=== PATIENT | male | born 1955 | race Two or more races ===

== ENCOUNTER 2016-06-17 17:03 | Inpatient (IN) | payer OTHER ==
[~2016-06-17] VITALS: Ht 170.2 cm; Wt 61.0 kg
[~2016-06-17 17:03] MED LIST: BENZ100C70 PO
[2016-06-17] MEDS ORDERED: ASPIRIN 81 MG TAB PO STA (17:20)
[2016-06-17] MEDS ORDERED: NITROGLYCERIN (SL) 0.4 MG TAB SL PRN ×2 (17:30→18:30)
[2016-06-17 17:35] LABS: BASOPHILS % 0.4 % (0.0-2.0); EOSINOPHILS # 0.2 10^3/ul (0.0-0.5); EOSINOPHILS % 2.8 % (0.0-7.0); HEMATOCRIT 38.3 % (42.0-52.0); HEMOGLOBIN 13.2 g/dl (14.0-18.0); LYMPHOCYTES # 2.3 10^3/ul (0.8-2.9); LYMPHOCYTES % 30.4 % (15.0-51.0); MEAN CORPUSCULAR HEMOGLOBIN 28.8 pg (29.0-33.0); MEAN CORPUSCULAR HGB CONC 34.5 g/dl (32.0-37.0); MEAN CORPUSCULAR VOLUME 83.5 fl (82.0-101.0); MEAN PLATELET VOLUME 8.2 fl (7.4-10.4); MONOCYTE # 0.5 10^3/ul (0.3-0.9); MONOCYTES % 6.3 % (0.0-11.0); NEUTROPHIL # 4.6 10^3/ul (1.6-7.5); NEUTROPHILS % 60.1 % (39.0-77.0); PLATELET COUNT 239 10^3/UL (140-440); RED BLOOD COUNT 4.59 10^6/ul (4.70-6.10); RED CELL DISTRIBUTION WIDTH 14.6 % (11.5-14.5); UNCORRECTED WBC 7.6 10^3/ul (4.8-10.8); WHITE BLOOD COUNT 7.6 10^3/ul (4.8-10.8)
[2016-06-17] MEDS ORDERED: ATOR80TA75 PO (17:40)
[2016-06-17 17:41] LABS: CHLORIDE 103 mmol/L (97-110); POTASSIUM 4.1 mmol/L (3.5-5.1); SODIUM 143 mmol/L (135-144)
[2016-06-17] MEDS ORDERED: NIT4 SL (17:41)
[2016-06-17] MEDS ORDERED: ERGO500037 PO (17:41)
[2016-06-17 17:43] LABS: INR 0.92; PROTIME 12.4 Sec (12.2-14.2)
[2016-06-17 17:44] LABS: ANION GAP 14 (8-16); BLOOD UREA NITROGEN 16 mg/dl (7-20); CARBON DIOXIDE 30 mmol/L (21-31); GLUCOSE 109 mg/dl (70-220); PARTIAL THROMBOPLASTIN TIME 26.1 Sec (25.0-35.0)
[2016-06-17 17:45] LABS: CALCIUM 9.1 mg/dl (8.4-10.2)
--- NOTE | 2016-06-17 17:45 | RADRPT ---
PROCEDURE: XR Chest. CLINICAL INDICATION: Chest pain TECHNIQUE: Chest AP portable COMPARISON: None available FINDINGS: The mediastinal structures are unremarkable. There is calcification of the thoracic aorta (consiste nt with atherosclerosis). The heart is normal in size and configuration. The pulmonary vascularity is normal. The lung cancino are unremarkable. No consolidation is identified. The pleural spaces are unremarkable. The osseous structures are unremarkable. IMPRESSION: Calcification of the thoracic aorta (consistent with atherosclerosis). No evidence for active cardiopulmonary disease. RPTAT: HGDB .Tavo Molina MD, Date Time Electronically viewed and signed by .Tavo Molina MD, on 06/17/2016 17:45 .B/
[2016-06-17] MEDS ORDERED: OMEG-80 PO (17:46)
[2016-06-17 17:48] LABS: CONDITION 1; LH ANALYZER COMMENTS 1
[2016-06-17] MEDS ORDERED: GABA300C16 PO (17:48)
[2016-06-17] MEDS ORDERED: LISI40TA9 PO (17:48)
[2016-06-17] MEDS ORDERED: ASPI81TA3 PO (17:48)
[2016-06-17] MEDS ORDERED: CARV25TA79 PO (17:49)
[2016-06-17] MEDS ORDERED: CALC-277 PO (17:49)
[2016-06-17] MEDS ORDERED: CETI10TA4 PO (17:49)
[2016-06-17 17:58] LABS: TROPONIN-I < 0.012 ng/ml (0.00-0.12)
--- NOTE | 2016-06-17 18:20 | ERA ---
ER Documentation Chief Complaint Date/Time DATE: 06/17/16 TIME: 18:17 Chief Complaint chest pain and dizziness with non traumatic headache since this am HPI This is a 60-year-old male who presents to the emergency room for evaluation of chest pain and dizziness for the past 24 hours. The patient localizes chest pain to the center of his chest, describes as achy pain with no radiation. He describes his dizziness as a lightheaded sensation worse with rapid change in position. He does state he has a history of hypertension, hyperlipidemia, diabetes. The patient denies any aggravating or relieving factors for his chest pain. Relieving factors for dizziness or laying flat, aggravating factors are rapid movement. ROS All systems reviewed and are negative except as per history of present illness. Medications Home Meds Reported Medications Cetirizine Hcl (All Day Allergy) 10 Mg Tablet, 10 MG PO DAILY, TAB 06/17/16 Calcium Carbonate/Vitamin D3 (OYSTER SHELL 500 MG + VIT D TB) 1 Each Tablet, 1 EACH PO BID, TAB 06/17/16 Carvedilol* (Carvedilol*) 25 Mg Tablet, 25 MG PO BID, #60 TAB 06/17/16 Lisinopril* (Lisinopril*) 40 Mg Tablet, 40 MG PO DAILY, #30 TAB 06/17/16 Aspirin* (Aspirin* Chew) 81 Mg Tab.chew, 81 MG PO DAILY, TAB.CHEW 06/17/16 Gabapentin* (Gabapentin*) 300 Mg Capsule, 300 MG PO TID, #90 CAP 06/17/16 [place]-3S/Dha/Epa/Fish Oil/D3 (FISH OIL + D3 SOFTGEL) 1 Each Capsule, 1 EACH PO BID, CAP 06/17/16 Ergocalciferol (Vitamin D2) (VITAMIN D2) 50,000 Unit Capsule, 97714 UNIT PO WEEKLY, CAP 06/17/16 Nitroglycerin* (Nitrostat*) 0.4 Mg Tab.subl, 0.4 MG SL Q5MIN Y for CHEST PAIN, BOTTLE 06/17/16 Atorvastatin* (Atorvastatin*) 80 Mg Tablet, 80 MG PO QHS, #30 TAB 06/17/16 Discontinued Scripts Benzonatate* (Tessalon Perle*) 100 Mg Capsule, 100 MG PO Q8H Y for COUGH, #30 CAP Prov:KAREN BARRY DO 12/21/15 Allergies Allergies: Coded Allergies: No Known Allergy (Unverified , 12/21/15) PMhx/Soc History of Surgery: No Anesthesia Reaction: No Hx Neurological Disorder: No Hx Respiratory Disorders: No Hx Cardiac Disorders: No Hx Psychiatric Problems: No Hx Miscellaneous Medical Probl: No Hx Alcohol Use: No Hx Substance Use: No Hx Tobacco Use: No Smoking Status: Never smoker Physical Exam Vitals Vital Signs Date Time Temp Pulse Resp B/P Pulse Ox O2 Delivery O2 Flow Rate FiO2 06/17/16 17:26 74 18 136/67 100 Room Air 06/17/16 17:04 98.5 77 20 146/70 97 Physical Exam INITIAL VITAL SIGNS: Reviewed by me GENERAL: The patient is well developed and appropriate for usual state of health in no apparent distress HEENT: Right corneal cataract, left pupil reactive,, round, and reactive to light. EOMI. There is no scleral icterus. NECK: C-spine is soft and supple, there is no meningismus. There is no cervical lymphadenopathy. LUNGS: Clear to auscultation bilaterally. There are no rales, wheezes or rhonchi. HEART: Regular rate and rhythm, no murmurs, clicks, rubs or gallops. ABDOMEN: Soft, non-tender, non-distended. There are bowel sounds in all four quadrants. No rebound or guarding. EXTREMITIES: There is no peripheral cyanosis or edema. No focal swelling or erythema. NEUROLOGICAL: The patient moves all four extremities with 5/5 strength. Cranial nerves II - XII are intact. Normal gait. Alert and oriented SKIN: There is no apparent rash or petechiae. HEME/LYMPHATIC: There is no evidence of excessive bruising or lymphedema. PSYCHIATRIC: The patient does not appear anxious or depressed. Result Diagram: 06/17/16 17306/17/16 1730 Results 24 hrs Laboratory Tests Test 06/17/16 17:30 Activated Partial Thromboplast Time 26.1Sec Anion Gap 14 Basophils # 0.010^3/ul Basophils % 0.4% Blood Morphology Comment Blood Urea Nitrogen 16mg/dl Calcium Level 9.1mg/dl Carbon Dioxide Level 30mmol/L Chloride Level 103mmol/L Creatinine 0.80mg/dl Eosinophils # 0.210^3/ul Eosinophils % 2.8% Glucose Level 109mg/dl Hematocrit 38.3% Hemoglobin 13.2g/dl INR International Normalized Ratio 0.92 Lymphocytes # 2.310^3/ul Lymphocytes % 30.4% Mean Corpuscular Hemoglobin 28.8pg Mean Corpuscular Hemoglobin Concent 34.5g/dl Mean Corpuscular Volume 83.5fl Mean Platelet Volume 8.2fl Monocytes # 0.510^3/ul Monocytes % 6.3% Neutrophils # 4.610^3/ul Neutrophils % 60.1% Nucleated Red Blood Cells # 0.010^3/ul Nucleated Red Blood Cells % 0.0/100WBC Platelet Count 83693^3/UL Potassium Level 4.1mmol/L Prothrombin Time 12.4Sec Prothrombin Time Ratio 1.0 Red Blood Count 4.5910^6/ul Red Cell Distribution Width 14.6% Sodium Level 143mmol/L Troponin I < 0.012ng/ml White Blood Count 7.610^3/ul Current Medications Medications (Trade) Dose Ordered Sig/Janak Route PRN Reason Start Time Stop Time Status Last Admin Dose Admin Aspirin (Aspirin) 162 mg ONCE STAT PO 06/17/16 17:20 06/17/16 17:21 DC 06/17/16 17:30 Nitroglycerin (Nitroglycerin (Sl Tab) 0.4 Mg) 1 tab Q5M UP TO 3 DOSES PRN SL CHEST PAIN 06/17/16 17:30 Ondansetron HCl (Zofran Inj) 4 mg ER BRIDGE PRN IV NAUSEA AND/OR VOMITING 06/17/16 18:30 06/18/16 18:29 Acetaminophen (Tylenol Tab) 650 mg ER BRIDGE PRN PO MILD PAIN/FEVER 06/17/16 18:30 06/18/16 18:29 Meclizine HCl (Antivert) 25 mg ONCE ONCE PO 06/17/16 18:30 06/17/16 18:31 06/17/16 18:15 IV Flush (NS 3 ml) 3 ml PER PROTOCOL IV 06/17/16 18:30 Lorazepam (Ativan) 0.5 mg Q6H PRN IV ANXIETY 06/17/16 18:30 Ondansetron HCl (Zofran Inj) 4 mg Q6H PRN IV NAUSEA AND/OR VOMITING 06/17/16 18:30 Aspirin (Aspirin) 81 mg DAILY PO 06/18/16 09:00 Nitroglycerin (Nitroglycerin (Sl Tab) 0.4 Mg) 1 tab Q5M PRN SL CHEST PAIN 06/17/16 18:30 Acetaminophen (Tylenol Tab) 650 mg Q6H PRN PO PAIN LEVEL 1-3 OR FEVER 06/17/16 18:30 Morphine Sulfate (morphine) 2 mg Q4H PRN IV PAIN LEVEL 7-10 06/17/16 18:30 Docusate Sodium (Colace) 100 mg Q12H PRN PO CONSTIPATION 06/17/16 18:30 Famotidine (Pepcid) 20 mg Q12 PO 06/17/16 21:00 Enoxaparin Sodium (Lovenox) 40 mg DAILY SC 06/18/16 09:00 Hydralazine HCl (Apresoline) 10 mg Q6H PRN IV sbp > 160 06/17/16 18:30 Procedures/MDM EKG: Rate/Rhythm: Left bundle branch block QRS, ST, T-waves: [No changes consistent w/ acute ischemia] Impression: Left bundle branch block Chest X-ray 1V Interpreted by me: Soft Tissue: No acute abnormalities Bones: No acute abnormalities Mediastinum/Cardiac Silhouette/Lungs: [No acute abnormalities] This 60-year-old male presents to the emergency room for evaluation of chest pain and dizziness. When I evaluated this patient he did appear to complain of chest pain in the center of his chest. EKG shows a left bundle branch block. He does have a history of hypertension, hyperlipidemia, diabetes. He has not had a stress test in over 3 years. Given this patient's age and risk factors he will be placed in at this time for admission with a repeat troponin, and a cardiac evaluation. First troponin is negative, and chest x-ray does not show any signs of pneumothorax or acute infiltrate. This patient will be placed in for admission to her panel physician and placed on a telemetry floor at this time under the care of Dr.Kadakia James Diagnosis: Primary Impression: Chest pain Additional Impression: Normocytic anemia Condition: Stable DEE DEENIKKYJeffNELLIELENA HAN Jun 17, 2016 18:20
[2016-06-17] MEDS ORDERED: ONDANSETRON 4 MG INJ IV PRN ×2 (18:30)
[2016-06-17] MEDS ORDERED: hydrALAzine 20 MG INJ IV PRN (18:30)
[2016-06-17] MEDS ORDERED: MECLIZINE 12.5 MG TAB PO ONE (18:30)
[2016-06-17] MEDS ORDERED: ACETAMINOPHEN 325 MG TAB PO PRN ×2 (18:30)
[2016-06-17] MEDS ORDERED: DOCUSATE SODIUM 100 MG CAP PO PRN (18:30)
[2016-06-17] MEDS ORDERED: LORAZEPAM 2 MG INJ IV PRN (18:30)
[2016-06-17] MEDS ORDERED: morphine 2 MG INJ IV PRN (18:30)
[2016-06-17] MEDS ORDERED: NACL 0.9% 3 ML SYG IV SCH (18:30)
[2016-06-17 18:47] LABS: CHOL/HDL RATIO 7.8 RATIO
[2016-06-17 18:49] LABS: CREATINE KINASE 150 IU/L (23-200); TROPONIN-I < 0.012 ng/ml (0.00-0.12)
[2016-06-17 18:50] LABS: CK-MB 0.81 ng/ml (0.0-2.4)
[2016-06-17 18:59] LABS: THYROID STIMULATING HORMONE 2.08 MIU/L (0.465-4.680)
--- NOTE | 2016-06-17 19:29 | RADRPT ---
PROCEDURE: Carotid ultrasound CLINICAL INDICATION: Syncope, carotid bruits TECHNIQUE: Burgos scale, color doppler, spectral doppler ultrasound of the bilateral carotid and paolo tebral arteries. This study indirectly references the measurement of the distal ICA diameter as the denominator for s tenosis measurement. Validated velocity measurements with angiographic measurements, velocity criter ia are extrapolated from diameter data as defined by: *Cartoid artery stenosis: burgos-scale and Doppl er US diagnosis. Society of Radiologists in Ultrasound Consensus Conference. Radiology 2003; 229: 34 0-346. SRU Consensus Conference Criteria for the Diagnosis of Carotid Artery Stenosis* Degree of Stenosis, % ICA PSV, cm/sec Plaque Estimate, % ICA/CCA PSV Ratio Normal <125 None <2.0 <50 <125 <50 <2.0 50 69 125-230 >50 2.0-4.0 >70 but less than near occlusion >230 >50 <4.0 Near occlusion High, low, or undetectable Visible Variable Total occlusion Undetectable Visible, no detectable lumen Not applicable COMPARISON: No prior studies are available for comparison. FINDINGS: Location Right CCA85 cm/sec Prox ICA 74 cm/sec Mid ICA63 cm/sec Dist ICA50 cm/sec ZKC757 cm/sec ICA/CCA0.9 Left CCA91 cm/sec Prox ICA 68 cm/sec Mid ICA61 cm/sec Dist ICA57 cm/sec ECA69 cm/sec ICA/CCA1.5 Plaque burden: A small amount of plaque is present within the proximal portion of both internal crum tid arteries, left greater than right. Antegrade flow is seen within the vertebral arteries bilaterally. IMPRESSION: A small amount of plaque is present within the visualized portions of both internal carotid arteries however there is no evidence of flow acceleration to suggest a hemodynamically significant stenosis . RPTAT: AADD .Nilesh Larios MD, MD Date Time Electronically viewed and signed by .Nilesh Larios MD, MD on 06/17/2016 19:28 .B/
--- NOTE | 2016-06-17 20:18 | HP ---
DATE OF ADMISSION: 06/17/2016 REASON FOR ADMISSION: Chest pain. CONSULTANTS: Cardiology. HISTORY OF PRESENT ILLNESS: This is a 60-year-old [facility] male with past medical history of essential hypertension, dyslipidemia, self reported diabetes (review of medications or medical records from [facility] do not mention DM), cardiomyopathy with ejection fraction of 30% to 35% and CAD who came to the emergency room with chief complaint of chest pain and dizziness. The patient verbalized that he has been having chest pain on and off and dizziness for the past 24 hours. The patient verbalized the chest pain as substernal with no radiation. The patient denied any associated nausea, vomiting or diaphoresis. The patient was complaining of episodes of dizziness. The patient denied any headache. The patient denied any head trauma. The patient denied any dyspnea. He denied any recent long travels. The patient verbalized that he tried taking sublingual nitroglycerin for chest pain with minimal help. He denied any fevers, chills, body aches, or other symptoms. In the emergency room, the patient's 12-lead EKG showed a left bundle branch block. The patient's initial set of troponins were negative. The patient's chest x-ray was showing calcification of the thoracic aorta consistent with atherosclerosis, but no evidence of any acute cardiopulmonary disease. The patient was treated with a single dose of aspirin and a dose of meclizine in the emergency room. PAST MEDICAL HISTORY: Essential hypertension, dyslipidemia, cardiomyopathy with ejection fraction of 30% to 35%, CAD, hydrocele, self reported diabetes mellitus (review of medications or medical records from [facility] do not mention DM). PAST SURGICAL HISTORY: Left heart catheterization in [facility]. HOME MEDICATIONS: 1. Cetirizine 10 mg p.o. daily. 2. Atorvastatin 80 mg p.o. at bedtime. 3. Coreg 25 mg p.o. b.i.d. 4. Lisinopril 40 mg p.o. daily. 5. [place] 3 fatty acids 1 tablet p.o. b.i.d. 6. Aspirin 81 mg p.o. daily. 7. Gabapentin 300 mg p.o. t.i.d. 8. Vitamin D2 at 50,000 units p.o. weekly. ALLERGIES: NO KNOWN DRUG ALLERGIES. SOCIAL HISTORY: The patient works in a restaurant. Denies any history of tobacco, alcohol or illicit drug use. REVIEW OF SYSTEMS: A 12-point review of systems were made and the review of systems are negative other than what is mentioned in the history of present illness. PHYSICAL EXAMINATION: VITAL SIGNS: Temperature 98.4, pulse 74, respiratory rate 18, blood pressure 136/60, oxygen saturation 100% on room air. GENERAL: This is a well-built, well-nourished [place] male lying in bed in no apparent distress. HEENT: Head normocephalic and atraumatic. Eyes: Anicteric sclerae. Conjunctivae clear. Pupils are on the right eye is opaque. ENT: Nasal septum is midline. Oral mucosa is moist. NECK: Supple. No JVD noticed. RESPIRATORY: Bilaterally clear to auscultation. No adventitious breath sounds heard. No use of accessory muscles of respiration. CARDIAC: Regular rate and rhythm with occasional skipped beats. No obvious murmurs. ABDOMEN: Soft, nontender and nondistended. Bowel sounds positive in all 4 quadrants. GENITOURINARY: Deferred. EXTREMITIES: No cyanosis, no clubbing, no edema. Peripheral pulses are diminished bilaterally. NEUROLOGIC: The patient is awake, alert and oriented. Cranial nerves are grossly intact. LABORATORY AND DIAGNOSTIC DATA: WBC 7.6, hemoglobin 13.2, hematocrit 38.3, platelet count 239. Sodium 143, potassium 4.1, chloride 103, carbon dioxide 30 , anion gap 14, BUN 16, creatinine 0.80, glucose 109, calcium 9.1. Troponin I less than 0.012. PT 12.4, INR 0.98, PTT 26.1. Chest x-ray, calcification of the thoracic aorta consistent with atherosclerosis. No evidence for active cardiopulmonary disease. 12-lead EKG: Left bundle branch block. IMPRESSION: This is a 60-year-old male with extensive cardiac history who came to the emergency room with chief complaint of chest pain, who will be admitted here for further treatment and evaluation. ASSESSMENT AND PLAN: 1. Chest pain. To rule out acute coronary syndrome. The patient has extensive cardiac history. The patient will be ruled out for any acute coronary syndrome. Serial troponins will be ordered. A 2D echocardiogram will be obtained to evaluate left ventricular ejection fraction. Cardiology consult will be obtained. The patient will be continued on aspirin. 2. Essential hypertension. The patient's home antihypertensives will be resumed. The patient will also be started on PRN antihypertensives for any systolic blood pressure readings greater than 160 mmHg. 3. Dyslipidemia. The patient will be started on a low cholesterol diet. The patient's statins will be resumed. 4. Cardiomyopathy with the ejection fraction of 30% to 35% as per records. The patient will be resumed on beta blockers and angiotensin-converting enzyme inhibitors. 5. Vertigo. Etiology unclear. The patient will be started on meclizine p.r.n. A carotid Doppler study will be obtained. A brain CT scan will be obtained. 6. Suspected diabetes mellitus. The patient's random blood sugars are satisfactory. Will obtain a hemoglobin A1C to evaluate the blood glucose control over the past few weeks. Plan. The patient will be admitted to inpatient telemetry floor. The patient will be started on a low cholesterol diet. Will make the patient NPO after midnight as per Cardiology. The patient will be started on DVT prophylaxis and gastrointestinal prophylaxis. Activities will be with assist. The patient will remain a FULL CODE. The rest of the patient's management will be based on the clinical course, the results of diagnostic studies and inputs from consultants. Based on the patient's clinical presentation, he most probably requires at least 1 midnight's stay for further management and evaluation of his clinical presentation. The case and management of this patient was fully discussed with Dr. Boogie. Approximately 50 minutes was spent on the history and physical on this patient. EMMA BOOGIE MD, AM/PENG Conf#: [id number] DID#: [id number]
[2016-06-17 21:01] VITALS: PULSE 70
[2016-06-17 21:18] VITALS: BP 169/79; RESP 18
[2016-06-17] MEDS ORDERED: MTF1000T PO (21:27)
[2016-06-17] MEDS: ATORVASTATIN 80 MG TAB PO SCH (21:36)
[2016-06-17] MEDS: FAMOTIDINE 20 MG TAB PO SCH (21:36)
--- NOTE | 2016-06-17 21:37 | RADRPT ---
PROCEDURE: Noncontrast CT Head. CLINICAL INDICATION: Trauma. TECHNIQUE: Noncontrast CT of the head was obtained. The administered radiation dose was CTDI vol = 44 mGy, DLP = 720 mGy-cm. COMPARISON: No pertinent prior examinations were submitted for comparison. FINDINGS: The ventricles and cortical sulci are mildly enlarged. There is mild decreased attenuation within t he periventricular and subcortical white matter compatible with chronic microvascular changes. There is no acute intracranial hemorrhage or extra-axial fluid collection. There is no mass effect . No midline shift is identified. There is no loss of magana-white differentiation to suggest acute in farction. The orbits are within normal limits. The paranasal sinuses are well aerated. No destructive osseous lesion is identified. IMPRESSION: No acute findings. Mild diffuse parenchymal volume loss and chronic microvascular changes. RPTAT: HIKT .Terrence Lipscomb MD, MD Date Time Electronically viewed and signed by .Terrence Lipscomb MD, on 06/17/2016 21:36 .T/
[2016-06-17] MEDS: ACCUCHECK XX SCH (21:38)
[2016-06-17 21:43] VITALS: Ht 170.2 cm; Wt 61.0 kg
[2016-06-17 21:47] VITALS: BP 150/79; PULSE 71; RESP 18
[2016-06-17] MEDS ORDERED: GLUCAGON 1 MG INJ IM PRN (22:00)
[2016-06-17] MEDS ORDERED: GLUCOSE GEL 15 GRAM TUBE BUCCAL PRN (22:00)
[2016-06-17] MEDS ORDERED: DEXTROSE 50% 50 ML SYRINGE IV PRN ×2 (22:00)
[2016-06-17] MEDS ORDERED: GLUCOSE GEL 15 GRAM TUBE PO PRN ×2 (22:00)
[2016-06-17 23:36] LABS: CREATINE KINASE 123 IU/L (23-200)
[2016-06-17 23:48] LABS: CK-MB 0.59 ng/ml (0.0-2.4)
[2016-06-17 23:58] LABS: TROPONIN-I < 0.012 ng/ml (0.00-0.12)
[2016-06-18] VITALS (10 sets, daily range): BP systolic 119–137; BP diastolic 59–78; PULSE 62–71; RESP 19
[2016-06-18 00:52] LABS: CREATINE KINASE 123 IU/L (23-200)
[2016-06-18 01:01] LABS: CK-MB 0.59 ng/ml (0.0-2.4)
[2016-06-18 01:08] LABS: TROPONIN-I < 0.012 ng/ml (0.00-0.12)
[2016-06-18 06:54] LABS: BASOPHILS % 0.4 % (0.0-2.0); EOSINOPHILS # 0.2 10^3/ul (0.0-0.5); EOSINOPHILS % 2.2 % (0.0-7.0); HEMATOCRIT 38.3 % (42.0-52.0); LYMPHOCYTES # 2.6 10^3/ul (0.8-2.9); LYMPHOCYTES % 36.3 % (15.0-51.0); MEAN CORPUSCULAR HEMOGLOBIN 28.2 pg (29.0-33.0); MEAN CORPUSCULAR HGB CONC 33.8 g/dl (32.0-37.0); MEAN CORPUSCULAR VOLUME 83.4 fl (82.0-101.0); MEAN PLATELET VOLUME 8.7 fl (7.4-10.4); MONOCYTE # 0.6 10^3/ul (0.3-0.9); MONOCYTES % 8.6 % (0.0-11.0); NEUTROPHIL # 3.7 10^3/ul (1.6-7.5); NEUTROPHILS % 52.5 % (39.0-77.0); PLATELET COUNT 199 10^3/UL (140-440); RED CELL DISTRIBUTION WIDTH 14.5 % (11.5-14.5); UNCORRECTED WBC 7.1 10^3/ul (4.8-10.8); WHITE BLOOD COUNT 7.1 10^3/ul (4.8-10.8)
[2016-06-18 06:57] LABS: CONDITION 1
[2016-06-18 07:07] LABS: CREATINE KINASE 97 IU/L (23-200); PHOSPHORUS 4.1 mg/dl (2.5-4.9)
[2016-06-18 07:13] LABS: POTASSIUM 4.1 mmol/L (3.5-5.1)
[2016-06-18 07:15] LABS: CREATININE 0.68 mg/dl (0.61-1.24)
[2016-06-18 07:16] LABS: CALCIUM 9.3 mg/dl (8.4-10.2)
[2016-06-18 07:22] LABS: CK-MB 0.54 ng/ml (0.0-2.4); TROPONIN-I < 0.012 ng/ml (0.00-0.12)
[2016-06-18] MEDS: INSULIN ASPART [NOVOLOG] 3 ML PEN SC SCH ×4 (07:40→20:36)
[2016-06-18] MEDS: FAMOTIDINE 20 MG TAB PO SCH ×2 (08:38→20:36)
[2016-06-18] MEDS: ASPIRIN 81 MG TAB PO SCH (08:38)
[2016-06-18] MEDS: LISINOPRIL 20 MG TAB PO SCH (08:38)
[2016-06-18] MEDS: ENOXAPARIN 40 MG/0.4 ML SYG SC SCH (08:41)
--- NOTE | 2016-06-18 11:20 | RADRPT ---
Echocardiogram Report Patient Name: DANIELE HOFF Gender: Male Date: 1955 Study Date: 18-Jun-2016 Suspender Cutter: Jalen Gil [facility] [[email or web address]] Location: 5560 Ref. Physician: JASIEL FRANKLIN Quality: Good Procedures: Transthoracic echocardiogram with complete 2D, M-Mode, and doppler examination. Indications: Chest Pain. 2D/M Mode Doppler Measurement Value Normal Ranges Measurement Value Normal Ranges LVIDd 2D 4.8 3.5 - 5.6 cm AI Peak PG 14.7 mmHg LVIDs 2D 3.7 2.1 - 4.1 cm AI Peak Juan 1.9 m/sec LVPWd 2D 1.1 0.6 - 1.1 cm AI PHT 527.1 msec IVSd 2D 1.0 0.6 - 1.1 cm LVOT Peak Juan 0.9 m/sec AoR Diam 2D 3.1 2.0 - 3.7 cm LVOT Peak PG 3.5 mmHg EDV 2D 107.4 cm3 MV E Peak Juan 0.5 m/sec ESV 2D 51.5 cm3 MV A Peak Juan 0.8 m/sec LA Dimen 2D 3.1 2.3 - 4.0 cm MV E/A 0.6 MV Decel Time 202 msec MV Decel Ogle 3 MV E/A 0.6 TR Peak Juan 2.6 m/sec TR Peak PG 27.4 mmHg RVSP 30.0 mmHg Findings Left Ventricle: Normal left ventricular cavity size. Mild concentric left ventricular hypertrophy. Moderate to severe left ventricular systolic dysfunction. Ejection fraction is visually estimated at 35 %. Tissue Doppler/Mitral Doppler indices are consistent with impaired relaxation (Stage I diastolic dysfunction). Right Ventricle: Normal right ventricular size. Normal right ventricular systolic function. Left Atrium: The left atrium is normal in size. Right Atrium: The right atrium is normal in size. Mitral Valve: Mitral valve leaflets appear mildly thickened. Mild mitral annular calcification. Trace mitral regurgitation. Aortic Valve: No hemodynamically significant aortic stenosis by doppler. Aortic cusps appear mildly calcified. Trace aortic valve regurgitation. Tricuspid Valve: Normal appearance and function of the tricuspid valve with trace physiologic regurgitation. Estimated peak PA systolic pressure 30 mmHg. Pulmonic Valve: Normal pulmonic valve appearance. Pericardium: Normal pericardium with no significant pericardial effusion. Aorta: Normal aortic root. IVC: Normal size and normal respiratory collapse consistent with normal right atrial pressure. Conclusions Normal left ventricular cavity size. Mild concentric left ventricular hypertrophy. Moderate to severe left ventricular systolic dysfunction. Ejection fraction is visually estimated at 35 %. Tissue Doppler/Mitral Doppler indices are consistent with impaired relaxation (Stage I diastolic dysfunction). Normal right ventricular size. Normal right ventricular systolic function. The left atrium is normal in size. The right atrium is normal in size. No significant valvular stenosis or regurgitation seen. Normal pericardium with no significant pericardial effusion. Electronically Signed By: Jeremy Chapman 18-Jun-2016 11:19:25 -0800 Patient Name: DANIELE HOFF Study Date: 18-Jun-[id number]
[2016-06-18] MEDS ORDERED: MECL-77 PO (11:45)
[2016-06-18] MEDS ORDERED: LISI20TA11 PO (11:45)
--- NOTE | 2016-06-18 12:25 | CONS ---
Date/Time of Note Date/Time of Note DATE: 06/18/16 TIME: 12:20 Assessment/Plan Assessment/Plan Additional Assessment/Plan Dizziness and lightheadedness, resolved Cardiomyopathy with ejection fraction 35% Compensated systolic congestive heart failure Diabetes Hypertension -Patient with episodes of dizziness with head movements and have since improved. He denies any current dizziness or lightheadedness, shortness of breath, chest pain. Serial cardiac enzymes are negative, echocardiogram with decreased systolic ejection fraction which is known. No significant arrhythmias seen on telemetry. Blood pressure trend has remained stable on current CV medication regimen. Would recommend ambulation to evaluate for any further symptoms. Otherwise the patient remains asymptomatic with no arrhythmias, no further inpatient cardiac workup needed at the current time. Patient to follow-up with his route service representative within the next 1 week. Consultation Date/Type/Reason Admit Date/Time Jun 17, 2016 at 18:02 Type of Consultation: cv Reason for Consultation Dizziness Hx of Present Illness This is a 60-year-old male with past medical history of congestive heart failure , hypertension, diabetes who presents with 1 day history of dizziness and palpitations. Patient states he woke up yesterday morning and with head movements he felt like the room was spinning around him. This got slightly better when he stood up. He did go to work but was feeling tired and fatigued the whole day. While at work, when he would move his head from side to side he had recurrent episodes of dizziness. At times he would have palpitations as well. He denies any chest pain or shortness of breath at rest or with exertion. Because of the above symptoms, he came to the emergency room for evaluation and care. He denies any further symptoms today but has done minimal activity while in the hospital bed. He normally follows up at [facility] cardiology. He did have an angiogram done approximately 1 year ago and as per the patient everything was normal. 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 Exam/Review of Systems Vital Signs Vitals Vital Signs Date Time Temp Pulse Resp B/P Pulse Ox O2 Delivery O2 Flow Rate FiO2 06/18/16 12:05 97.1 64 19 130/72 98 06/17/16 21:47 Nasal Cannula 2.0 Exam No apparent distress Constitutional: alert, oriented Head: normocephalic Neck: supple Respiratory: clear to auscultation, normal air movement Cardiovascular: other (S1-S2 heard, no murmurs appreciated), regular rate and rhythm Gastrointestinal: bowel sounds, non-tender, other (No guarding), soft Extremities: other (No edema) Results Result Diagram: 06/18/1660406/18/16604 Results 24 hrs Laboratory Tests Test 06/17/16 17:30 06/17/16 21:23 06/17/16 23:15 06/18/16 00:25 Activated Partial Thromboplast Time 26.1 Anion Gap 14 Basophils # 0.0 Basophils % 0.4 Blood Morphology Comment Blood Urea Nitrogen 16 Calcium Level 9.1 Carbon Dioxide Level 30 Chloride Level 103 Cholesterol Level 220 H Cholesterol/HDL Ratio 7.8 Creatine Kinase 150 123 123 Creatine Kinase Index 0.5 0.5 0.5 Creatinine 0.80 Creatinine Kinase MB (Mass) 0.81 0.59 0.59 Eosinophils # 0.2 Eosinophils % 2.8 Free Thyroxine 0.87 Glucose Level 109 HDL Cholesterol 28 L Hematocrit 38.3 L Hemoglobin 13.2 L Hemoglobin A1c 7.2 H INR International Normalized Ratio 0.92 LDL Cholesterol, Calculated 4 Lymphocytes # 2.3 Lymphocytes % 30.4 Magnesium Level 2.0 Mean Corpuscular Hemoglobin 28.8 L Mean Corpuscular Hemoglobin Concent 34.5 Mean Corpuscular Volume 83.5 Mean Platelet Volume 8.2 Monocytes # 0.5 Monocytes % 6.3 Neutrophils # 4.6 Neutrophils % 60.1 Nucleated Red Blood Cells # 0.0 Nucleated Red Blood Cells % 0.0 Platelet Count 239 Potassium Level 4.1 Prothrombin Time 12.4 Prothrombin Time Ratio 1.0 Red Blood Count 4.59 L Red Cell Distribution Width 14.6 H Sodium Level 143 Thyroid Stimulating Hormone (TSH) 2.080 Triglycerides Level 941 H Troponin I < 0.012 < 0.012 < 0.012 White Blood Count 7.6 Bedside Glucose 98 Test 06/18/16 06:05 06/18/16 07:35 06/18/16 11:48 Anion Gap 15 Basophils # 0.0 Basophils % 0.4 Blood Morphology Comment Blood Urea Nitrogen 14 Calcium Level 9.3 Carbon Dioxide Level 28 Chloride Level 104 Creatine Kinase 97 Creatine Kinase Index 0.6 Creatinine 0.68 Creatinine Kinase MB (Mass) 0.54 Eosinophils # 0.2 Eosinophils % 2.2 Glucose Level 125 Hematocrit 38.3 L Hemoglobin 13.0 L Hemoglobin A1c 7.5 H Lymphocytes # 2.6 Lymphocytes % 36.3 Magnesium Level 2.0 Mean Corpuscular Hemoglobin 28.2 L Mean Corpuscular Hemoglobin Concent 33.8 Mean Corpuscular Volume 83.4 Mean Platelet Volume 8.7 Monocytes # 0.6 Monocytes % 8.6 Neutrophils # 3.7 Neutrophils % 52.5 Nucleated Red Blood Cells # 0.0 Nucleated Red Blood Cells % 0.0 Phosphorus Level 4.1 Platelet Count 199 Potassium Level 4.1 Red Blood Count 4.60 L Red Cell Distribution Width 14.5 Sodium Level 143 Troponin I < 0.012 White Blood Count 7.1 Bedside Glucose 137 133 Medications Medications Current Medications Lorazepam (Ativan) 0.5 mg Q6H PRN IV ANXIETY; Start 06/17/16 at 18:30 Ondansetron HCl (Zofran Inj) 4 mg Q6H PRN IV NAUSEA AND/OR VOMITING; Start 04/21 at 18:30 Aspirin (Aspirin) 81 mg DAILY PO Last administered on 06/18/16 08:38; Admin Dose 81 MG; Start 06/18/16 at 09:00 Nitroglycerin (Nitroglycerin (Sl Tab) 0.4 Mg) 1 tab Q5M PRN SL CHEST PAIN; Start 06/17/16 at 18:30 Acetaminophen (Tylenol Tab) 650 mg Q6H PRN PO PAIN LEVEL 1-3 OR FEVER; Start at 18:30 Morphine Sulfate (morphine) 2 mg Q4H PRN IV PAIN LEVEL 7-10; Start 06/17/16 at 18:30 Docusate Sodium (Colace) 100 mg Q12H PRN PO CONSTIPATION; Start 06/17/16 at 18: 30 Famotidine (Pepcid) 20 mg Q12 PO Last administered on 06/18/16 08:38; Admin Dose 20 MG; Start 06/17/16 at 21:00 Enoxaparin Sodium (Lovenox) 40 mg DAILY SC Last administered on 06/18/16 08:41 ; Admin Dose 40 MG; Start 06/18/16 at 09:00 Hydralazine HCl (Apresoline) 10 mg Q6H PRN IV sbp > 160; Start 06/17/16 at 18: 30 Atorvastatin Calcium (Lipitor) 80 mg HS PO Last administered on 06/17/16 21:36 ; Admin Dose 80 MG; Start 06/17/16 at 21:00 Carvedilol (Coreg) 25 mg BID PO Last administered on 06/18/16 08:39; Admin Dose 25 MG; Start 06/17/16 at 21:00 Lisinopril (Zestril) 20 mg DAILY PO Last administered on 06/18/16 08:38; Admin Dose 20 MG; Start 06/18/16 at 09:00 Diagnostic Test (Pha) (Accucheck) 1 ea 02 XX ; Start 06/18/16 at 02:00 Miscellaneous Information 1 ea NOTE XX ; Start 06/17/16 at 22:00 Glucose (Glutose) 15 gm Q15M PRN PO DECREASED GLUCOSE; Start 06/17/16 at 22:00 Glucose (Glutose) 22.5 gm Q15M PRN PO DECREASED GLUCOSE; Start 06/17/16 at 22: 00 Dextrose (D50w Syringe) 25 ml Q15M PRN IV DECREASED GLUCOSE; Start 06/17/16 at 22:00 Dextrose (D50w Syringe) 50 ml Q15M PRN IV DECREASED GLUCOSE; Start 06/17/16 at 22:00 Glucagon (Glucagen) 1 mg Q15M PRN IM DECREASED GLUCOSE; Start 06/17/16 at 22:00 Glucose (Glutose) 15 gm Q15M PRN BUCCAL DECREASED GLUCOSE; Start 06/17/16 at 22 :00 Meclizine HCl (Antivert) 25 mg TID PRN PO dizziness; Start 06/18/16 at 12:00 Procedures Procedures ECG demonstrates sinus rhythm, left bundle branch block with QRS 142 ms, nonspecific STT wave abnormalities Jeremy Chapman DO Jun 18, 2016 12:25
--- NOTE | 2016-06-18 14:10 | PDOCDIS ---
Discharge Instructions DIAGNOSIS Discharge Diagnosis: 1. Chest pain (atypical) 2. Essential hypertension 3. Vertigo 4. Cardiomyop CONDITION Patient Condition: Stable HOME CARE INSTRUCTIONS: Diet Instructions: Low Fat /Cholesterol ACTIVITY: Activity Restrictions: Slowly Increase Activity Rest between Activity FOLLOW UP/APPOINTMENTS Appointments 1. Follow-up with her primary care provider within a week 2. Follow-up with her finance vice president within a week OTHER ORDERS: Other Orders: 1. Call 911 if you have worsening of chest pain or shortness of breath UMER CALL Jun 18, 2016 14:09
[2016-06-18] MEDS: MECLIZINE 25 MG TAB PO PRN (16:27)
--- NOTE | 2016-06-18 17:17 | RADRPT ---
PROCEDURE: MRI Brain without contrast. CLINICAL INDICATION: Headaches TECHNIQUE: Multiplanar MRI of the brain without contrast was performed on a 3.0 T scanner with the following sequences obtained: T1-weighted, T2-weighted/FLAIR, diffusion weighted (with ADC map), GR E. COMPARISON: CT brain 06/17/2016 FINDINGS: No acute/recent ischemic infarction or intracranial hemorrhage / blood degradation products are iden tified. No extra-axial fluid collection is seen. There is no mass effect. No midline shift is identified. The ventricles and sulci are mildly enlarged, compatible with volume loss. Minimal areas of increased T2 / FLAIR signal intensity are present in the periventricular - deep whi te matter, nonspecific but likely related to chronic small vessel ischemic changes. Flow voids are identified in the proximal intracranial arteries and dural sinuses suggesting patency . Noted is a small left maxillary sinus mucous retention cyst. IMPRESSION: 1. No evidence of acute intracranial pathology. 2. Mild volume loss, with minimal chronic small vessel ischemic changes. RPTAT: VV .Bubba Vernon MD, MD Date Time Electronically viewed and signed by .Bubba Vernon MD, on 06/18/2016 17:17 .O/
[2016-06-18] MEDS: ATORVASTATIN 80 MG TAB PO SCH (20:36)
[2016-06-19] VITALS (7 sets, daily range): BP systolic 105–127; BP diastolic 53–63; PULSE 60–76; RESP 18–20
[2016-06-19] MEDS: ACCUCHECK XX SCH (02:00)
[2016-06-19] MEDS: INSULIN ASPART [NOVOLOG] 3 ML PEN SC SCH ×2 (08:00→12:13)
[2016-06-19] MEDS: MECLIZINE 25 MG TAB PO PRN (08:04)
[2016-06-19] MEDS: ASPIRIN 81 MG TAB PO SCH (08:04)
[2016-06-19] MEDS: FAMOTIDINE 20 MG TAB PO SCH (08:04)
[2016-06-19] MEDS: LISINOPRIL 20 MG TAB PO SCH (08:05)
[2016-06-19] MEDS: ENOXAPARIN 40 MG/0.4 ML SYG SC SCH (08:33)
--- NOTE | 2016-06-19 11:47 | CONS ---
Date/Time of Note Date/Time of Note DATE: 06/19/16 TIME: 11:45 Assessment/Plan Assessment/Plan Additional Assessment/Plan Dizziness and lightheadedness Cardiomyopathy with ejection fraction 35% Compensated systolic congestive heart failure Diabetes Hypertension -Patient once again this morning complaining of symptoms of dizziness and lightheadedness with moving head side to side as well as forward and back. MRI brain is negative. Blood pressure trend has remained stable. Symptoms possibly secondary to vertigo. No further inpatient cardiac workup needed at the current time. Consultation Date/Type/Reason Admit Date/Time Jun 17, 2016 at 18:02 Initial Consult Date Type of Consultation: cv 24 HR Interval Summary Free Text/Dictation Patient complains of dizziness again this morning. Symptoms occur with moving head side to side. Denies palpitations, chest pain or shortness of breath Exam/Review of Systems Vital Signs Vitals Vital Signs Date Time Temp Pulse Resp B/P Pulse Ox O2 Delivery O2 Flow Rate FiO2 06/19/16 08:20 97.7 69 20 123/63 96 06/17/16 21:47 Nasal Cannula 2.0 Intake and Output 06/18/16 06/18/16 06/19/16 15:00 23:00 07:00 Intake Total 400 ml 250 ml Balance 400 ml 250 ml Exam No apparent distress Constitutional: alert, oriented Head: normocephalic Neck: supple Respiratory: other (Coarse breath sounds bilaterally, no wheezing) Cardiovascular: other (S1-S2 heard), regular rate and rhythm Gastrointestinal: bowel sounds, non-tender, other (No guarding), soft Extremities: other (No edema) Results Result Diagram: 06/18/1660406/18/16 06 Results 24 hrs Laboratory Tests Test 06/18/16 11:48 06/18/16 16:49 06/18/16 20:17 06/19/16 08:18 Bedside Glucose 133 175 138 134 Medications Medications Current Medications Lorazepam (Ativan) 0.5 mg Q6H PRN IV ANXIETY; Start 06/17/16 at 18:30 Ondansetron HCl (Zofran Inj) 4 mg Q6H PRN IV NAUSEA AND/OR VOMITING; Start 04/21 at 18:30 Aspirin (Aspirin) 81 mg DAILY PO Last administered on 06/19/16t 08:04; Admin Dose 81 MG; Start 06/18/16 at 09:00 Nitroglycerin (Nitroglycerin (Sl Tab) 0.4 Mg) 1 tab Q5M PRN SL CHEST PAIN; Start 06/17/16 at 18:30 Acetaminophen (Tylenol Tab) 650 mg Q6H PRN PO PAIN LEVEL 1-3 OR FEVER; Start at 18:30 Morphine Sulfate (morphine) 2 mg Q4H PRN IV PAIN LEVEL 7-10; Start 06/17/16 at 18:30 Docusate Sodium (Colace) 100 mg Q12H PRN PO CONSTIPATION; Start 06/17/16 at 18: 30 Famotidine (Pepcid) 20 mg Q12 PO Last administered on 06/19/16 08:04; Admin Dose 20 MG; Start 06/17/16 at 21:00 Enoxaparin Sodium (Lovenox) 40 mg DAILY SC Last administered on 06/19/16 08:33 ; Admin Dose 40 MG; Start 06/18/16 at 09:00 Hydralazine HCl (Apresoline) 10 mg Q6H PRN IV sbp > 160; Start 06/17/16 at 18: 30 Atorvastatin Calcium (Lipitor) 80 mg HS PO Last administered on 06/18/16 20:36 ; Admin Dose 80 MG; Start 06/17/16 at 21:00 Carvedilol (Coreg) 25 mg BID PO Last administered on 06/19/16 08:04; Admin Dose 25 MG; Start 06/17/16 at 21:00 Lisinopril (Zestril) 20 mg DAILY PO Last administered on 06/19/16 08:05; Admin Dose 20 MG; Start 06/18/16 at 09:00 Diagnostic Test (Pha) (Accucheck) 1 ea 02 XX ; Start 06/18/16 at 02:00 Miscellaneous Information 1 ea NOTE XX ; Start 06/17/16 at 22:00 Glucose (Glutose) 15 gm Q15M PRN PO DECREASED GLUCOSE; Start 06/17/16 at 22:00 Glucose (Glutose) 22.5 gm Q15M PRN PO DECREASED GLUCOSE; Start 06/17/16 at 22: 00 Dextrose (D50w Syringe) 25 ml Q15M PRN IV DECREASED GLUCOSE; Start 06/17/16 at 22:00 Dextrose (D50w Syringe) 50 ml Q15M PRN IV DECREASED GLUCOSE; Start 06/17/16 at 22:00 Glucagon (Glucagen) 1 mg Q15M PRN IM DECREASED GLUCOSE; Start 06/17/16 at 22:00 Glucose (Glutose) 15 gm Q15M PRN BUCCAL DECREASED GLUCOSE; Start 06/17/16 at 22 :00 Meclizine HCl (Antivert) 25 mg TID PRN PO dizziness Last administered on 08:04; Admin Dose 25 MG; Start 06/18/16 at 12:00 Jeremy Chapman DO Jun 19, 2016 11:47
[2016-06-19] MEDS ORDERED: MAGNESIUM SULFATE 1 GM/D5W 100 ML IVPB ONE (12:30)
--- NOTE | 2016-06-19 15:46 | DS ---
Date/Time of Note Date/Time of Note DATE: 06/19/16 TIME: 15:41 Discharge Summary Admission/Discharge Info Admit Date/Time Jun 17, 2016 at 18:02 Discharge Date/Time Patient Condition: Stable Consults 1. Dr. Jeremy Chapman Hospital Course This is a 60-year-old male with history of essential hypertension, dyslipidemia , diabetes, cardiomyopathy with ejection fraction of 30-35%, CAD, who came to [facility] due to reports of dizziness and also some km chest pain. She reported having chest pain on and off for 24 hours duration. He reported no radiation with this. He denied any nausea vomiting or diaphoresis. He did report taking sublingual Dr. holman with minimal improvement. He did come to [facility] for aforementioned issues. He was seen with EKG with left bundle branch block. Initial set of troponins were negative. Chest x-ray showed no evidence of cardiopulmonary disease. Due to his extensive heart history he was also seen by technology recruiter. Patient's symptoms did improve during his stay. His serial cardiac enzymes were negative. He still remained with low EF but overall had no other significant arrhythmias and his blood pressure remained stable. His dizziness was likely attributed to vertigo. No further cardiac workup was needed. Additionally MRI and CT scan of the brain were negative for any acute intracranial findings. During his course of stay did improve. He was otherwise optimized medically. He did have good response to meclizine. He was advised to follow-up with his primary physician for further management and care of his vertigo. During his course of stay did improve. He was otherwise optimized medically. He was continued on statin medication for dyslipidemia and optimized on his cardiovascular medications for his cardiomyopathy. On the day of discharge patient was in stable condition Discussed at care with Dr. Whatley Discharge process time is 40 minutes Disposition: Home Home Meds Active Scripts Meclizine Hcl* (Meclizine Hcl*) 25 Mg Tablet, 25 MG PO Q8H Y for DIZZINESS, #30 TAB Prov:UMER CALL 06/18/16 Lisinopril* (Lisinopril*) 20 Mg Tablet, 20 MG PO DAILY for 30 Days, TAB Prov:UMER CALL 06/18/16 Reported Medications Metformin* (Glucophage*) 1,000 Mg Tablet, 1000 MG PO BID, #60 TAB 06/17/16 Cetirizine Hcl (All Day Allergy) 10 Mg Tablet, 10 MG PO DAILY, TAB 06/17/16 Calcium Carbonate/Vitamin D3 (OYSTER SHELL 500 MG + VIT D TB) 1 Each Tablet, 1 EACH PO BID, TAB 06/17/16 Carvedilol* (Carvedilol*) 25 Mg Tablet, 25 MG PO BID, #60 TAB 06/17/16 Aspirin* (Aspirin* Chew) 81 Mg Tab.chew, 81 MG PO DAILY, TAB.CHEW 06/17/16 Gabapentin* (Gabapentin*) 300 Mg Capsule, 300 MG PO TID, #90 CAP 06/17/16 [place]-3S/Dha/Epa/Fish Oil/D3 (FISH OIL + D3 SOFTGEL) 1 Each Capsule, 1 EACH PO BID, CAP 06/17/16 Ergocalciferol (Vitamin D2) (VITAMIN D2) 50,000 Unit Capsule, 04211 UNIT PO WEEKLY, CAP 06/17/16 Nitroglycerin* (Nitrostat*) 0.4 Mg Tab.subl, 0.4 MG SL Q5MIN Y for CHEST PAIN, BOTTLE 06/17/16 Atorvastatin* (Atorvastatin*) 80 Mg Tablet, 80 MG PO QHS, #30 TAB 06/17/16 Discontinued Reported Medications Lisinopril* (Lisinopril*) 40 Mg Tablet, 40 MG PO DAILY, #30 TAB 06/17/16 Discontinued Scripts Benzonatate* (Tessalon Perle*) 100 Mg Capsule, 100 MG PO Q8H Y for COUGH, #30 CAP Prov:KAREN BARRY DO 12/21/15 Follow-up Plan CONDITION Patient Condition: Stable HOME CARE INSTRUCTIONS: Diet Instructions: Low Fat /Cholesterol ACTIVITY: Activity Restrictions: Slowly Increase Activity Rest between Activity FOLLOW UP/APPOINTMENTS Appointments 1. Follow-up with her primary care provider within a week 2. Follow-up with her technology recruiter within a week OTHER ORDERS: Other Orders: 1. Call 911 if you have worsening of chest pain or shortness of breath Pending Labs Laboratory Tests Test 06/18/16 16:49 06/18/16 20:17 06/19/16 08:18 06/19/16 12:01 Bedside Glucose 175mg/dL (70-220) 138mg/dL (70-220) 134mg/dL (70-220) 143mg/dL (70-220) UMER CALL Jun 19, 2016 15:45
--- NOTE | 2016-06-19 15:48 | PN ---
Date/Time of Note Date/Time of Note LATE ENTRY DATE: 06/18/16 Assessment/Plan VTE Prophylaxis VTE Prophylaxis Intervention: SCD's Lines/Catheters IV Catheter Type (from Nrsg): Saline Lock Assessment/Plan Chief Complaint/Hosp Course Assessment and plan 1. Chest pain. So troponins negative. Ballistic Technician following. Patient noted with low EF. Continue optimization with cardiovascular medications. Of note no chest pain reported at this time 2. Essential hypertension. We'll continue on antihypertensives and adjust as needed 3. Dyslipidemia. Continue on statin 4. Cardiomyopathy with ejection fraction of 30-35%. Continue on beta isha and LOIS inhibitor 5. Vertigo. Etiology unknown. Follow-up MRI of the brain. Continue on meclizine Disposition and plan: Follow up on MRI. Discharge him medically stable and cleared by consultants Discussed plan of care with Dr. Booker Problems: Subjective 24 Hr Interval Summary Free Text/Dictation Still reports having some dizziness. No chest pain reported Exam/Review of Systems Vital Signs Vitals Vital Signs Date Time Temp Pulse Resp B/P Pulse Ox O2 Delivery O2 Flow Rate FiO2 06/19/16 12:20 66 06/19/16 11:51 98.4 20 105/53 99 06/17/16 21:47 Nasal Cannula 2.0 Intake and Output 06/18/16 06/18/16 06/19/16 15:00 23:00 07:00 Intake Total 400 ml 250 ml Balance 400 ml 250 ml Exam General: Reports some dizziness Eyes: pupils equal round, Anicteric sclera Neck: Supple nontender, no JVD Cardiac: S1, S2 auscultated, regular rhythm and rate Pulmonary: No coarse rhonchi or breathing auscultated GI: Abdomen soft nontender nondistended, bowel sounds active Extremities: No edema bilateral lower extremities Skin: Clean dry and intact Neurologic: Alert to person place and time and situation Results Result Diagram: 06/18/16 0606/18/16 06 Results 24 hrs Laboratory Tests Test 06/18/16 16:49 06/18/16 20:17 06/19/16 08:18 06/19/16 12:01 Bedside Glucose 175 138 134 143 Medications Medications Current Medications Lorazepam (Ativan) 0.5 mg Q6H PRN IV ANXIETY; Start 06/17/16 at 18:30 Ondansetron HCl (Zofran Inj) 4 mg Q6H PRN IV NAUSEA AND/OR VOMITING; Start 04/21 at 18:30 Aspirin (Aspirin) 81 mg DAILY PO Last administered on 06/19/16 08:04; Admin Dose 81 MG; Start 06/18/16 at 09:00 Nitroglycerin (Nitroglycerin (Sl Tab) 0.4 Mg) 1 tab Q5M PRN SL CHEST PAIN; Start 06/17/16 at 18:30 Acetaminophen (Tylenol Tab) 650 mg Q6H PRN PO PAIN LEVEL 1-3 OR FEVER; Start at 18:30 Morphine Sulfate (morphine) 2 mg Q4H PRN IV PAIN LEVEL 7-10; Start 06/17/16 at 18:30 Docusate Sodium (Colace) 100 mg Q12H PRN PO CONSTIPATION; Start 06/17/16 at 18: 30 Famotidine (Pepcid) 20 mg Q12 PO Last administered on 06/19/16 08:04; Admin Dose 20 MG; Start 06/17/16 at 21:00 Enoxaparin Sodium (Lovenox) 40 mg DAILY SC Last administered on 06/19/16 08:33 ; Admin Dose 40 MG; Start 06/18/16 at 09:00 Hydralazine HCl (Apresoline) 10 mg Q6H PRN IV sbp > 160; Start 06/17/16 at 18: 30 Atorvastatin Calcium (Lipitor) 80 mg HS PO Last administered on 06/18/16 20:36 ; Admin Dose 80 MG; Start 06/17/16 at 21:00 Carvedilol (Coreg) 25 mg BID PO Last administered on 06/19/16 08:04; Admin Dose 25 MG; Start 06/17/16 at 21:00 Lisinopril (Zestril) 20 mg DAILY PO Last administered on 06/19/16 08:05; Admin Dose 20 MG; Start 06/18/16 at 09:00 Diagnostic Test (Pha) (Accucheck) 1 ea 02 XX ; Start 06/18/16 at 02:00 Miscellaneous Information 1 ea NOTE XX ; Start 06/17/16 at 22:00 Glucose (Glutose) 15 gm Q15M PRN PO DECREASED GLUCOSE; Start 06/17/16 at 22:00 Glucose (Glutose) 22.5 gm Q15M PRN PO DECREASED GLUCOSE; Start 06/17/16 at 22: 00 Dextrose (D50w Syringe) 25 ml Q15M PRN IV DECREASED GLUCOSE; Start 06/17/16 at 22:00 Dextrose (D50w Syringe) 50 ml Q15M PRN IV DECREASED GLUCOSE; Start 06/17/16 at 22:00 Glucagon (Glucagen) 1 mg Q15M PRN IM DECREASED GLUCOSE; Start 06/17/16 at 22:00 Glucose (Glutose) 15 gm Q15M PRN BUCCAL DECREASED GLUCOSE; Start 06/17/16 at 22 :00 Meclizine HCl (Antivert) 25 mg TID PRN PO dizziness Last administered on 08:04; Admin Dose 25 MG; Start 06/18/16 at 12:00 UMER CALL Jun 19, 2016 15:48
== END 2016-06-19 15:55 | disposition home or self-care (01) | DRG 313 ==
LOC: E/R 17:03 → MS4 18:02
PROVIDERS: ADMIT Student in an Organized Health Care Education/Training Program; ATTEND Student in an Organized Health Care Education/Training Program
DX: R07.9 Chest pain, unspecified (principal); I42.9 Cardiomyopathy, unspecified; I10 Essential (primary) hypertension; E78.5 Hyperlipidemia, unspecified; R42 Dizziness and giddiness; E11.9 Type 2 diabetes mellitus without complications
CPT/HCPCS: 36415; 70450; 70551; 71010; 80048; 80061; 82550; 82553; 82962; 83036; 83735; 84100; 84439; 84443; 84484; 85025; 85610; 85730; 93005; 93306; 93880; J1650; J1815; J3475

== ENCOUNTER 2017-05-30 06:17 | Emergency (ER) | END 2017-05-30 13:54 | disposition home or self-care (01) ==

== ENCOUNTER 2017-11-20 07:59 | Emergency (ER) | END 2017-11-20 08:51 | disposition home or self-care (01) ==

== ENCOUNTER 2017-12-26 10:45 | Emergency (ER) | END 2017-12-26 19:41 | disposition home or self-care (01) ==

== ENCOUNTER 2017-12-27 01:04 | Emergency (ER) | END 2017-12-27 04:16 | disposition home or self-care (01) ==

== ENCOUNTER 2018-10-07 17:04 | Observation (INO) | payer OTHER ==
[~2018-10-07] VITALS: Ht 162.6 cm; Wt 60.4 kg
[~2018-10-07 17:04] MED LIST changes: +ASPI-903 PO; -BENZ100C70 PO; +CARV12.579 PO; +CETI10TA3 PO; +CYCL10TA7 PO; +HYDR-3980 PO; +HYDR-4011 PO; +IBUP-1542 PO; +IBUP800T48 PO; +LISI40TA3 PO; +MED4DP PO; +METH750T93 PO; +MTF1000T PO; +NITR0.4T39 SL; +OMEP20CA16 PO; +ONDA4TAB8 PO; +PRED20TA PO
--- NOTE | 2018-10-07 19:54 | ERD ---
ER Documentation Chief Complaint Chief Complaint chest pain, cough since 1500, no relief sublingual nitro HPI The patient is a 63-year-old male, presenting to the ER because of left sided chest pain that began around 3 PM, relief with 2 nitroglycerin and aspirin 81 mg. The pain is 6/10, radiating to the neck, had similar symptoms previously, denies dyspnea, complains of intermittent cough today, denies fever, chills, neck pain, abdominal pain, vomiting, dysuria, diarrhea. He does not smoke nor drink Medical history: Hypertension, diabetes mellitus, CAD, cardiomyopathy with low EF of 30 to 35%, GERD Past surgical history: Spinal tumor ROS All systems reviewed and are negative except as per history of present illness. Medications Home Meds Active Scripts Ibuprofen* (Motrin*) 800 Mg Tab, 800 MG PO Q6, #30 TAB Prov:YANI ZAPATA PA-C 11/20/17 Reported Medications Gabapentin* (Gabapentin*) 300 Mg Capsule, 300 MG PO TID for 90 Days, #270 10/07/18 Carvedilol* (Carvedilol*) 25 Mg Tablet, 25 MG PO BID for 90 Days, #180 10/07/18 Calcium Carbonate/Vitamin D3 (Calcium 600 + Vit D Tablet) 1 Each Tablet, 1 TAB PO DAILY for 90 Days, #90 10/07/18 Lisinopril* (Lisinopril*) 40 Mg Tablet, 40 MG PO DAILY, #30 TAB 05/30/17 Omeprazole* (Omeprazole*) 20 Mg Capsule.dr, 20 MG PO DAILY, #30 CAP 05/30/17 Metformin* (Glucophage*) 1,000 Mg Tablet, 1000 MG PO BID, #60 TAB 06/17/16 Aspirin* (Aspirin* Chew) 81 Mg Tab.chew, 81 MG PO DAILY, TAB.CHEW 06/17/16 Nitroglycerin* (Nitrostat*) 0.4 Mg Tab.subl, 0.4 MG SL Q5MIN PRN for CHEST PAIN, BOTTLE 06/17/16 Discontinued Reported Medications Carvedilol* (Carvedilol*) 12.5 Mg Tablet, 12.5 MG PO BID, #60 TAB 05/30/17 Cetirizine Hcl (All Day Allergy) 10 Mg Tablet, 10 MG PO DAILY, TAB 06/17/16 Discontinued Scripts Ibuprofen* (Motrin*) 600 Mg Tab, 600 MG PO Q8, #30 TAB Prov:PEE GHOTRA DO 12/27/17 Methocarbamol* (Robaxin*) 750 Mg Tablet, 750 MG PO TID, #20 TAB Prov:PEE GHOTRA DO 12/27/17 Hydrocodone/Acetaminophen ([place] 10-325 Tablet) 1 Each Tablet, 1 TAB PO Q6H PRN for PAIN, #20 TAB Prov:PEE GHOTRA DO 12/27/17 Prednisone* (Prednisone*) 20 Mg Tab, 40 MG PO DAILY for 5 Days, TAB Prov:BRUNA MCKINNON MD 12/26/17 Hydrocodone/Acetaminophen ([place] 5-325 Tablet) 1 Each Tablet, 1 TAB PO Q6H PRN for PAIN, #20 TAB Prov:BRUNA MCKINNON MD 12/26/17 Cyclobenzaprine Hcl* (Cyclobenzaprine Hcl*) 10 Mg Tablet, 10 MG PO TID, #15 TAB Prov:YANI ZAPATA PA-C 11/20/17 Methylprednisolone* (Medrol* DOSE PACK) 4 Mg/Dose-Pack Tab.ds.pk, 4 MG PO . DIRECTED, #1 PACKET Prov:YANI ZAPATA PA-C 11/20/17 Hydrocodone/Acetaminophen ([place] 5-325 Tablet) 1 Each Tablet, 1 TAB PO Q6H PRN for PAIN, #7 TAB Prov:YANI ZAPATA PA-C 11/20/17 Ondansetron Hcl* (Zofran*) 4 Mg Tablet, 4 MG PO Q8H PRN for NAUSEA AND/OR VOMITING, #20 TAB Prov:OSKAR HASSAN MD 05/30/17 Allergies Allergies: Coded Allergies: No Known Allergy (Unverified , 10/07/18) PMhx/Soc History of Surgery: Yes (angiogram x2) Anesthesia Reaction: No Hx Neurological Disorder: No Hx Respiratory Disorders: No Hx Cardiac Disorders: Yes (HTN,HYPERLIPIDEMIA,CAD,CARDIOMYOPATHY) Hx Psychiatric Problems: No Hx Miscellaneous Medical Probl: Yes (DM,GERD) Hx Alcohol Use: No Hx Substance Use: No Hx Tobacco Use: No Physical Exam Vitals Vital Signs Date Temp Pulse Resp B/P (MAP) Pulse Ox O2 O2 Flow FiO2 Time Delivery Rate 10/08/18 76 18 107/57 100 Room Air 01:10 (74) 10/07/18 84 18 134/71 100 Room Air 21:41 (92) 10/07/18 82 18 141/66 99 Room Air 19:55 (91) 10/07/18 98.0 45 18 136/62 100 17:12 (86) Physical Exam Const: No acute distress. Head: Atraumatic. Eyes: Normal Conjunctiva. ENT: Normal External Ears, Nose and Mouth. Neck: Full range of motion. No meningismus. Resp: Clear to auscultation bilaterally. Cardio: Regular rate and rhythm. Abd: Soft, non distended, normal bowel sounds, non tender. Skin: No petechiae or rashes. Back: No midline or flank tenderness. Ext: No cyanosis, or edema. Neur: Awake and alert. No focal deficit Psych: Normal Mood and Affect. Result Diagram: 10/07/18204010/07/182040 Results 24 hrs Laboratory Tests Test 10/07/18 20:41 White Blood Count 6.9 10^3/ul Red Blood Count 4.52 10^6/ul Hemoglobin 11.2 g/dl Hematocrit 35.8 % Mean Corpuscular Volume 79.2 fl Mean Corpuscular Hemoglobin 24.8 pg Mean Corpuscular Hemoglobin Concent 31.3 g/dl Red Cell Distribution Width 15.0 % Platelet Count 222 10^3/UL Mean Platelet Volume 11.2 fl Immature Granulocytes % 0.300 % Neutrophils % 52.1 % Lymphocytes % 36.9 % Monocytes % 8.1 % Eosinophils % 2.2 % Basophils % 0.4 % Nucleated Red Blood Cells % 0.0 /100WBC Immature Granulocytes # 0.020 10^3/ul Neutrophils # 3.6 10^3/ul Lymphocytes # 2.5 10^3/ul Monocytes # 0.6 10^3/ul Eosinophils # 0.2 10^3/ul Basophils # 0.0 10^3/ul Nucleated Red Blood Cells # 0.0 10^3/ul Sodium Level 139 mmol/L Potassium Level 4.6 mmol/L Chloride Level 103 mmol/L Carbon Dioxide Level 26 mmol/L Anion Gap 10 Blood Urea Nitrogen 11 mg/dl Creatinine 0.73 mg/dl Est Glomerular Filtrat Rate mL/min > 60 mL/min Glucose Level 98 mg/dl Calcium Level 9.8 mg/dl Magnesium Level 1.9 mg/dl Total Bilirubin 0.3 mg/dl Direct Bilirubin 0.00 mg/dl Indirect Bilirubin 0.3 mg/dl Aspartate Amino Transf (AST/SGOT) 19 IU/L Alanine Aminotransferase (ALT/SGPT) 21 IU/L Alkaline Phosphatase 69 IU/L Troponin I < 0.012 ng/ml Total Protein 7.2 g/dl Albumin 4.3 g/dl Lipase 142 U/L Current Medications Medications Dose Sig/Janak Start Time Status Last (Trade) Ordered Route PRN Stop Time Admin Dose Reason Admin 1 inch ONCE ONCE 10/07/18 DC 10/07/18 Nitroglycerin TD 23:30 10/07/18 23:39 23:31 (Nitroglyceri n 2% Oint) Aspirin 162 mg ONCE ONCE 10/07/18 DC 10/07/18 (Aspirin) PO 23:30 10/07/18 23:38 23:31 Aspirin 81 mg ONCE ONCE 10/07/18 DC 10/07/18 (Aspirin) PO 23:30 10/07/18 23:38 23:31 Procedures/[place] [id number] Radiology Main Line: [phone] DIAGNOSTIC IMAGING REPORT Patient: DANIELE HOFF : 1955 Age: 63 Sex: M MR #: [id number] DOS: 10/07/181953 Ordering MD: ESVIN MOROCHO MD Location: E/R Room/Bed: PROCEDURE: XR Chest. CLINICAL INDICATION: Chest pain. TECHNIQUE: Single frontal chest x-ray. COMPARISON: CR CHEST 06/17/2016 FINDINGS: The lungs are clear. No focal opacification is seen. The cardiomediastinal silhouette is unremarkable. The osseous structures are remarkable for multilevel degenerative spinal enthesopathy. Aortic atherosclerotic vascular calcifications. Overall appearances are stable when compared to the prior study. IMPRESSION: 1. No acute cardiopulmonary process. 2. Benign chronic senescent changes. 3. Stable appearances over time. RPTAT: PP .Tayo Ontiveros MD, Date Time Electronically viewed and signed by .Tayo Ontiveros MD, MD on 10/07/2018 20:32 .B/ CC: ESVIN MOROCHO MD [phone] EKG: Read by emergency physician Rate/Rhythm: Normal Sinus Rhythm 81 beats/min QRS, ST, T-waves: No ST elevation, no T inversion, PVC, LBBB Impression: Abnormal EKG MEDICAL MAKING DECISION: The patient is a 62-year-old male with multiple cardiac risk factor, presenting with acute chest pain, concerning for acute ACS. He was treated with nitroglycerin 1 inch ointment to the chest wall, 3 aspirin 81 mg p.o. for acute chest pain the differential diagnoses considered include but are not limited to acute coronary syndrome, acute myocardial infarction, pericarditis, pulmonary embolism, aortic dissection, pneumonia, pleural effusion, pneumothorax, GERD, chest wall pain. Departure Diagnosis: Primary Impression: Chest pain Additional Impression: Anemia Condition: Stable Comments I discussed the findings with the patient. I discussed the patient with Dr Quiros at 11:45 p , who was made aware of the lab, the treatment, the patient condition. The patient is admitted to Tel Obs Disclaimer: Inadvertent spelling and grammatical errors are likely due to EHR/dictation software use and do not reflect on the overall quality of patient care. Also, please note that the electronic time recorded on this note does not necessarily reflect the actual time of the patient encounter. ESVIN MOROCHO MD Oct 07, 2018 19:54
[2018-10-07] MEDS ORDERED: GABA300C16 PO (22:38)
[2018-10-07] MEDS ORDERED: CARV25TA79 PO (22:38)
[2018-10-07] MEDS ORDERED: [UNRECOGNIZED DRUG - CODE] PO (22:38)
[2018-10-07] MEDS ORDERED: ASPIRIN 81 MG TAB PO ONE ×2 (23:30)
[2018-10-07] MEDS ORDERED: NITROGLYCERIN 2% 1 GM OINT PKT TD ONE (23:30)
[2018-10-08 03:50] VITALS: BP 131/79; RESP 18
[2018-10-08 04:00] VITALS: PULSE 71
[2018-10-08 04:11] VITALS: Ht 162.6 cm; Wt 60.4 kg
[2018-10-08] MEDS ORDERED: morphine 2 MG INJ IV PRN (05:30)
[2018-10-08] MEDS ORDERED: NITROGLYCERIN (SL) 0.4 MG TAB SL PRN (05:30)
[2018-10-08] MEDS ORDERED: PANTOPRAZOLE (EC) 40 MG TAB PO SCH (06:00)
[2018-10-08 07:26] VITALS: BP 106/61; PULSE 66; RESP 18
[2018-10-08 08:10] VITALS: PULSE 77
[2018-10-08] MEDS: GABAPENTIN 300 MG CAP PO SCH ×2 (08:36→12:42)
[2018-10-08] MEDS ORDERED: CALCIUM/VITAMIN D (500/200) TAB PO SCH (09:00)
[2018-10-08] MEDS: LISINOPRIL 20 MG TAB PO SCH (09:00)
[2018-10-08] MEDS ORDERED: NON-FORMULARY/PATIENT OWN MED (Omeprazole* 20 MG) PO SCH (09:00)
[2018-10-08] MEDS ORDERED: ASPIRIN 81 MG TAB PO SCH (09:00)
[2018-10-08] MEDS ORDERED: OMEP20CA16 PO (09:38)
--- NOTE | 2018-10-08 09:39 | PDOCDIS ---
Discharge Instructions CONDITION [id number] Patient Condition: [id number] Good HOME CARE INSTRUCTIONS: [id number] Diet Instructions: [id number] Activity Restrictions: [id number] No Restrictions FOLLOW UP/APPOINTMENTS Follow-up Plan pcp 1 week YOVANI WATSON MD Oct 08, 2018 09:39
--- NOTE | 2018-10-08 11:08 | CONS ---
Assessment/Plan Assessment/Plan Hospital Course (Demo Recall) Abdominal pain Chronic systolic congestive heart failure Cardiomyopathy Hypertension Diabetes Dyslipidemia PVCs I spoke to patient via room service supervisor, he is complaining of cramping and burning-like pain in his left lower quadrant near his pelvis which radiates up to his chest yesterday. He denies exertional chest pain or shortness of breath. His pain is improved today but is still present and appears positional. Serial cardiac enzymes remain negative, ECG with sinus rhythm, left bundle with frequent PVCs. Magnesium level is low, would order supplementation. Continue beta-blockers heart rate and blood pressure permits. Will check echocardiogram to rule out any pericardial effusion Otherwise if above results are unremarkable, no further inpatient cardiac work- up needed at the current time for his abdominal pain. Consultation Date/Type/Reason Admit Date/Time Oct 08, 2018 at 00:11 Type of Consult Cardiology Reason for Consultation Cardiology evaluation Date/Time of Note DATE: 10/08/18 TIME: 11:08 Hx of Present Illness This is a 63-year-old male with past medical history of cardia myopathy, hypertension, diabetes who presents with left lower abdominal pain. Pain began yesterday approximately 3 PM. Pain is crampy like and burning and radiates up to his mid chest. Pain is worse with different positions. Yesterday, pain became so for severe that he was short of breath. Denies any chest pain or chest pressure. Denies any dizziness or lightheadedness. The pain is still present but localized now in the left lower quadrant. Denies any current shortness of breath. 12 point review of systems was performed with all pertinent positives and negatives mentioned above and all else is negative Past Medical History Medical History: congestive heart failure, diabetes, hypertension Home Meds Active Scripts Omeprazole* (Omeprazole*) 20 Mg Capsule., 40 MG PO DAILY for 30 Days, #30 CAP Prov:YOVANI WATSON MD 10/08/18 Reported Medications Gabapentin* (Gabapentin*) 300 Mg Capsule, 300 MG PO TID for 90 Days, #270 10/07/18 Carvedilol* (Carvedilol*) 25 Mg Tablet, 25 MG PO BID for 90 Days, #180 10/07/18 Calcium Carbonate/Vitamin D3 (Calcium 600 + Vit D Tablet) 1 Each Tablet, 1 TAB PO DAILY for 90 Days, #90 10/07/18 Lisinopril* (Lisinopril*) 40 Mg Tablet, 40 MG PO DAILY, #30 TAB 05/30/17 Metformin* (Glucophage*) 1,000 Mg Tablet, 1000 MG PO BID, #60 TAB 06/17/16 Aspirin* (Aspirin* Chew) 81 Mg Tab.chew, 81 MG PO DAILY, TAB.CHEW 06/17/16 Nitroglycerin* (Nitrostat*) 0.4 Mg Tab.subl, 0.4 MG SL Q5MIN PRN for CHEST PAIN, BOTTLE 06/17/16 Discontinued Reported Medications Carvedilol* (Carvedilol*) 12.5 Mg Tablet, 12.5 MG PO BID, #60 TAB 05/30/17 Cetirizine Hcl (All Day Allergy) 10 Mg Tablet, 10 MG PO DAILY, TAB 06/17/16 Discontinued Scripts Ibuprofen* (Motrin*) 800 Mg Tab, 800 MG PO Q6, #30 TAB Prov:YANI ZAPATA PA-C 11/20/17 Ibuprofen* (Motrin*) 600 Mg Tab, 600 MG PO Q8, #30 TAB Prov:PEE GHOTRA DO 12/27/17 Methocarbamol* (Robaxin*) 750 Mg Tablet, 750 MG PO TID, #20 TAB Prov:PEE GHOTRA DO 12/27/17 Hydrocodone/Acetaminophen ([place] 10-325 Tablet) 1 Each Tablet, 1 TAB PO Q6H PRN for PAIN, #20 TAB Prov:PEE GHOTRA DO 12/27/17 Prednisone* (Prednisone*) 20 Mg Tab, 40 MG PO DAILY for 5 Days, TAB Prov:BRUNA MCKINNON MD 12/26/17 Hydrocodone/Acetaminophen ([place] 5-325 Tablet) 1 Each Tablet, 1 TAB PO Q6H PRN for PAIN, #20 TAB Prov:BRUNA MCKINNON MD 12/26/17 Cyclobenzaprine Hcl* (Cyclobenzaprine Hcl*) 10 Mg Tablet, 10 MG PO TID, #15 TAB Prov:YANI ZAPATA PA-C 11/20/17 Methylprednisolone* (Medrol* DOSE PACK) 4 Mg/Dose-Pack Tab.ds.pk, 4 MG PO . DIRECTED, #1 PACKET Prov:YANI ZAPATA PA-C 11/20/17 Hydrocodone/Acetaminophen ([place] 5-325 Tablet) 1 Each Tablet, 1 TAB PO Q6H PRN for PAIN, #7 TAB Prov:YANI ZAPATA PA-C 11/20/17 Ondansetron Hcl* (Zofran*) 4 Mg Tablet, 4 MG PO Q8H PRN for NAUSEA AND/OR VOMITING, #20 TAB Prov:OSKAR HASSAN MD 05/30/17 Medications Current Medications Aspirin (Aspirin) 81 mg DAILY PO Last administered on 10/08/18at 08:37; Admin Dose 81 MG; Start 10/08/18 at 09:00 Carvedilol (Coreg) 25 mg BID PO Last administered on 10/08/18at 08:38; Admin Dose 25 MG; Start 10/08/18 at 09:00 Gabapentin (Neurontin) 300 mg TID PO Last administered on 10/08/18at 08:36; Admin Dose 300 MG; Start 10/08/18 at 09:00 Lisinopril (Zestril) 40 mg DAILY PO ; Start 10/08/18 at 09:00 Calcium/Vitamin D ([place]/ Vit-D (500/200)) 1 tab DAILY PO Last administered on 10/08/18at 08:36; Admin Dose 1 TAB; Start 10/08/18 at 09:00 Nitroglycerin (Nitroglycerin (Sl Tab) 0.4 Mg) 1 tab Q5M PRN SL ANGINA; Start 10/08/18 at 05:30 Morphine Sulfate (morphine) 2 mg Q3 PRN IV SEVERE PAIN LEVEL 7-10; Start 10/08/18 at 05:30 Pantoprazole (Protonix Tab) 40 mg DAILY@06 PO ; Start 10/08/18 at 06:00 Pantoprazole (Protonix Tab) 40 mg DAILY@06 PO ; Start 10/09/18 at 06:00 Magnesium Sulfate 50 ml @ 25 mls/hr ONCE ONCE IVPB ; Start 10/08/18 at 11:30; Stop 10/08/18 at 13:29; Status UNV Allergies: Coded Allergies: No Known Allergy (Unverified , 10/07/18) Social History Smoking Status: Never smoker Exam/Review of Systems Vital Signs Vitals Vital Signs Date Temp Pulse Resp B/P (MAP) Pulse Ox O2 O2 Flow FiO2 Time Delivery Rate 10/08/18 77 08:10 10/08/18 97.9 18 106/61 100 Room Air 07:26 (76) Exam Exam No apparent distress Constitutional: alert, oriented Head: normocephalic Respiratory: clear to auscultation, normal air movement Cardiovascular: regular rate and rhythm (S1-S2 heard) Gastrointestinal: soft, bowel sounds, tender (Left lower quadrant) Extremities: other (No significant edema) Labs Result Diagram: 10/07/18204010/07/182040 Results 24hrs Laboratory Tests Test 10/07/18 20:41 10/08/18 02:52 10/08/18 06:34 White Blood Count 6.9 # Red Blood Count 4.52 L Hemoglobin 11.2 L Hematocrit 35.8 L Mean Corpuscular Volume 79.2 L Mean Corpuscular Hemoglobin 24.8 L Mean Corpuscular Hemoglobin Concent 31.3 L Red Cell Distribution Width 15.0 H Platelet Count 222 # Mean Platelet Volume 11.2 H Immature Granulocytes % 0.300 Neutrophils % 52.1 Lymphocytes % 36.9 Monocytes % 8.1 Eosinophils % 2.2 Basophils % 0.4 Nucleated Red Blood Cells % 0.0 Immature Granulocytes # 0.020 Neutrophils # 3.6 Lymphocytes # 2.5 Monocytes # 0.6 Eosinophils # 0.2 Basophils # 0.0 Nucleated Red Blood Cells # 0.0 Sodium Level 139 Potassium Level 4.6 Chloride Level 103 Carbon Dioxide Level 26 Anion Gap 10 Blood Urea Nitrogen 11 Creatinine 0.73 Est Glomerular Filtrat Rate mL/min > 60 Glucose Level 98 Calcium Level 9.8 Magnesium Level 1.9 Total Bilirubin 0.3 Direct Bilirubin 0.00 Indirect Bilirubin 0.3 Aspartate Amino Transf (AST/SGOT) 19 Alanine Aminotransferase (ALT/SGPT) 21 Alkaline Phosphatase 69 Troponin I < 0.012 < 0.012 < 0.012 Total Protein 7.2 Albumin 4.3 Lipase 142 Creatine Kinase 92 84 Creatine Kinase Index 0.5 0.6 Creatinine Kinase MB (Mass) 0.44 0.53 Imaging Imaging Sinus rhythm, frequent PVCs, left bundle branch block with QRS 144 ms, nonspecific ST abnormalities Medications Medications Current Medications Aspirin (Aspirin) 81 mg DAILY PO Last administered on 10/08/18at 08:37; Admin Dose 81 MG; Start 10/08/18 at 09:00 Carvedilol (Coreg) 25 mg BID PO Last administered on 10/08/18at 08:38; Admin Dose 25 MG; Start 10/08/18 at 09:00 Gabapentin (Neurontin) 300 mg TID PO Last administered on 10/08/18at 08:36; Admin Dose 300 MG; Start 10/08/18 at 09:00 Lisinopril (Zestril) 40 mg DAILY PO ; Start 10/08/18 at 09:00 Calcium/Vitamin D ([place]/ Vit-D (500/200)) 1 tab DAILY PO Last administered on 10/08/18at 08:36; Admin Dose 1 TAB; Start 10/08/18 at 09:00 Nitroglycerin (Nitroglycerin (Sl Tab) 0.4 Mg) 1 tab Q5M PRN SL ANGINA; Start 10/08/18 at 05:30 Morphine Sulfate (morphine) 2 mg Q3 PRN IV SEVERE PAIN LEVEL 7-10; Start 10/08/18 at 05:30 Pantoprazole (Protonix Tab) 40 mg DAILY@06 PO ; Start 10/08/18 at 06:00 Pantoprazole (Protonix Tab) 40 mg DAILY@06 PO ; Start 10/09/18 at 06:00 Magnesium Sulfate 50 ml @ 25 mls/hr ONCE ONCE IVPB ; Start 10/08/18 at 11:30; Stop 10/08/18 at 13:29; Status Jeremy Barnes DO Oct 08, 2018 11:08
[2018-10-08] MEDS ORDERED: MAGNESIUM SULFATE 2 GM/50 ML 50 ML IVPB ONE (11:30)
[2018-10-08 11:55] VITALS: BP 109/63; PULSE 79; RESP 18
[2018-10-08 12:13] VITALS: PULSE 64
--- NOTE | 2018-10-08 12:44 | RADRPT ---
Echocardiogram Report Patient Name: DANIELE HOFFPatient ID: [id number] : 1955 (63y )Study Date: 10/08/2018 11:17:02 AM Gender: MAccession #: [id number] Tech: [facility] Location: 508-A Ref.Physician: JEREMY CHAPMAN Height(Cm): BSA: Weight(Kg): Quality: AdequateOrder Physician: JEREMY CHAPMAN Account #: Procedures: Echocardiographic Report: Transthoracic echocardiogram with complete 2D, M-Mode, and doppler examination. Indications: Chest Pain, and Congestive Heart Failure. Measurements: 2D/M Mode Doppler Measurement Value Normal Range Measurement Value Normal Range LVIDd 2D 4.8 [ 4.2 - 5.8 ] cm AV Peak Juan 1.0 [ 100.0 - 170.0 ] cm/sec LVIDs 2D 3.6 [ 2.5 - 4.0 ] cm AV Peak PG 4.0 [ 2.0 - 9.0 ] mmHg LVPWd 2D 0.8 [ 0.6 - 1.0 ] cm LVOT Peak Juan 0.7 [ 70.0 - 110.0 ] cm/sec IVSd 2D 1.1 [ 0.6 - 1.0 ] cm LVOT Peak PG 2.0 [ 2.0 - 6.0 ] mmHg AoR Diam 2D 3.4 [ 2.6 - 3.4 ] cm MV E Peak Juan 0.6 [ 60.0 - 130.0 ] cm/sec EDV 2D 110.0 [ 62.0 - 150.0 ] ml MV A Peak Juan 1.0 [ 100.0 - 120.0 ] cm/sec ESV 2D 54.4 [ 21.0 - 61.0 ] ml MV E/A 0.6 [ 0.8 - 1.5 ] ratio EF 2D 50.5 [ 52.0 - 72.0 ] percent MV Decel Time 208 [ 104 - 258 ] msec Lat E` Juan 0.1 [ 10.0 - 15.0 ] cm/sec Lateral E/E` 9.2 [ 1.0 - 2.0 ] ratio MV E/A 0.6 [ 0.8 - 1.5 ] ratio TR Peak Juan 2.4 [ 100.0 - 280.0 ] cm/sec TR Peak PG 23.0 mmHg RVSP 26.0 [ 10.0 - 36.0 ] mmHg Findings: Left Ventricle: Normal left ventricular cavity size. Sigmoid septum. Moderate left ventricular systolic dysfunction. Ejection fraction is visually estimated at 35 %. Tissue Doppler/Mitral Doppler indices are consistent with impaired relaxation (Stage I diastolic dysfunction). Right Ventricle: Normal right ventricular size. Normal right ventricular systolic function. Left Atrium: The left atrium is normal in size. Right Atrium: The right atrium is normal in size. Mitral Valve: Mild mitral leaflet calcification. Mild mitral annular calcification. Trace mitral regurgitation. Aortic Valve: No hemodynamically significant aortic stenosis by doppler. Aortic cusps appear mildly calcified. Trace aortic valve regurgitation. Tricuspid Valve: Normal appearance of the tricuspid valve. The estimated Peak RVSP is 26 mmHg. There is trace tricuspid regurgitation. Pericardium: Normal pericardium with no significant pericardial effusion. Aorta: Normal aortic root. IVC: Normal size and normal respiratory collapse consistent with normal right atrial pressure. Conclusions: Normal left ventricular cavity size. Sigmoid septum. Moderate left ventricular systolic dysfunction. Ejection fraction is visually estimated at 35 %. Tissue Doppler/Mitral Doppler indices are consistent with impaired relaxation (Stage I diastolic dysfunction). Normal right ventricular size. Normal right ventricular systolic function. The left atrium is normal in size. The right atrium is normal in size. No significant valvular stenosis or regurgitation seen. Normal pericardium with no significant pericardial effusion. Electronically Signed By: Jeremy Chapman 2018-10-08 12:44:06 PDT
--- NOTE | 2018-10-08 14:33 | HP ---
DATE OF ADMISSION: 10/08/2018 CHIEF COMPLAINT: Left upper abdominal pain radiating to the chest. HISTORY OF PRESENT ILLNESS: This is a 63-year-old male with a history of coronary artery disease, hy pertension, and type 2 diabetes mellitus, presented to Emergency Room with complaint of left-sided up per abdominal pain radiating to the chest. The symptoms started about 3:00 in the afternoon. He too k 2 nitroglycerin and aspirin and the pain subsided. He denies exertional symptoms. No shortness of breath. No nausea, vomiting, or diaphoresis. The patient pointed to his left upper abdomen. Initi al evaluation was unremarkable. The EKG did not show any ST or T-wave changes. PAST MEDICAL HISTORY: 1. Coronary artery disease. 2. Hypertension. 3. Type 2 diabetes mellitus. 4. Hyperlipidemia. 5. History of gastritis. MEDICATIONS PRIOR TO ADMISSION: 1. Gabapentin. 2. Carvedilol. 3. Calcium carbonate. 4. Lisinopril. 5. Omeprazole. 6. Metformin. 7. Aspirin. 8. Nitroglycerin. SOCIAL HISTORY: Patient lives at home. He denies tobacco or alcohol use. PHYSICAL EXAMINATION: GENERAL: Well-developed, well-nourished male who is in no apparent distress. VITAL SIGNS: Stable. He is afebrile. HEENT: The patient is blind in the right eye. The left eye with pupils equal and reactive to light. Oropharynx is clear. NECK: Supple. LUNGS: Clear to auscultation bilaterally. CARDIAC: Regular rate and rhythm. No murmurs, rubs or gallops. ABDOMEN: Soft. Left upper tenderness to palpation. No rebound or guarding. Normoactive bowel soun ds. EXTREMITIES: No clubbing, cyanosis or edema. NEUROLOGICAL: Nonfocal. LABORATORY DATA: WBC 6.9, hemoglobin 11.2, platelet count 222,000. BMP is within normal limits. Se rial troponins have been normal. Lipase was 142. ASSESSMENT: 1. A 63-year-old male presenting with left upper quadrant abdominal pain radiating to the chest. Ac emily coronary syndrome is less likely. The pain is most likely due to gastritis. 2. Coronary artery disease. 3. Cardiomyopathy with EF of about 35%. 4. Hypertension. 5. Type 2 diabetes mellitus. 6. Hyperlipidemia. PLAN: 1. Place in tele observation. Proceed with Lexiscan stress test. 2. Continue selective home medications. 3. Discharge planning if the stress test is normal. Dictated By: YOVANI CADET/PENG Conf#: [id number] DID#: [id number]
[2018-10-09] MEDS ORDERED: PANTOPRAZOLE (EC) 40 MG TAB PO SCH (06:00)
== END 2018-10-08 13:00 | disposition home or self-care (01) ==
LOC: E/R 17:04 → TEL 10-08 00:11 → CANRESERV 10-08 02:41
PROVIDERS: ADMIT Internal Medicine; ATTEND Internal Medicine
DX: R07.9 Chest pain, unspecified (principal); I10 Essential (primary) hypertension; E11.9 Type 2 diabetes mellitus without complications; I25.10 Atherosclerotic heart disease of native coronary artery without angina pectoris; I42.9 Cardiomyopathy, unspecified; K21.9 Gastro-esophageal reflux disease without esophagitis; E78.5 Hyperlipidemia, unspecified; Z79.82 Long term (current) use of aspirin; Z79.84 Long term (current) use of oral hypoglycemic drugs
CPT/HCPCS: 36415; 71045; 80048; 80076; 82550; 82553; 83690; 83735; 84484; 85025; 93005; 93306; J3475; Z7500; Z7502; Z7610; G0378